=== PATIENT | female | born 1960 | race Caucasian/White ===

== ENCOUNTER 2017-07-03 00:58 | Emergency (ER) | payer BC ==
--- NOTE | 2017-07-03 01:28 | Emergency Department Record ---
History of Present Illness - General Chief Complaint: Alcohol Intoxication Stated Complaint: INTOXICATED Time Seen by Provider: 07/03/17 01:19 Source: Patient, Family Mode of Arrival: EMS Limitations: No limitations - History of Present Illness Initial Comments: The patient is here due to feeling very ill at home which started about 2 hours ago. She was at [employer] most of the evening and had at least 9-10 drinks and then went home at 11:30. When she got home she began to feel very ill and vomited for about an hour. Additionally she felt very weak and dizzy. She denied any CP, SOB, TAYLOR, AP, or any arm or leg numbness or weakness. Due to the persistent vomiting family called 911. EMS found the patient very intoxicated and nauseated. She did receive a dose of Zofran on the way to the hospital and now is feeling much better. Presently she denies any dizziness, weakness, pain, TAYLOR or SOB. MD Complaint: Alcohol intoxication Last Drink: Just [employer] Time Since Last Drink: 90 -: Minute(s) Chronic Alcohol Use: Yes Previous Visits for Alcohol Intoxication?: No Recent Trauma: No Associated Symptoms: Nausea, Vomiting Treatments Prior to Arrival: None - [place] Coma Scale Eye Response: (4) Open spontaneously Motor Response: (6) Obeys commands Verbal Response: (5) Oriented [place] Total: 15 - Related Data Home Medications Medication Instructions Recorded Confirmed Last Taken Atorvastatin Calcium 10 mg PO DAILY 07/03/17 07/03/17 Unknown Doxycycline Hyclate [Doxycycline] 40 mg PO DAILY 07/03/17 07/03/17 Unknown L.acidoph,Paracasei, B.lactis 1 each PO DAILY 07/03/17 07/03/17 Unknown [Probiotic] Latanoprost 0.005% Opth Leelee 2 drop AFFEYE DAILY 07/03/17 07/03/17 Unknown [Xalatan] Allergies Allergy/AdvReac Type Severity Reaction Status Date / Time codeine Allergy Intermediate stomach Verified 07/03/17 01:00 issues morphine Allergy Intermediate stomach Verified 07/03/17 01:00 issues/headache Travel Screening - Travel/Exposure Within Last 30 Days Have you traveled within the last 30 days?: No - Travel/Exposure Within Last Year Have you traveled outside the [place] in the last year?: No - Additonal Travel Details Have you been exposed to anyone with a communicable illness?: No - Travel Symptoms Symptom Screening: None Review of Systems Constitutional: Denies: Chills, Fever Eyes: Denies: Eye discharge ENT: Denies: Congestion Respiratory: Denies: Cough, Dyspnea Past Medical History - SOCIAL HISTORY Smoking Status: Current every day smoker Alcohol Use: Heavy Drug Use: None - RESPIRATORY Hx Respiratory Disorders: Yes Hx Bronchitis: Yes (every 3 yrs) Hx Sleep Apnea: Yes Hx of CPAP: Yes - CARDIOVASCULAR Hx Cardio Disorders: Yes Hx Hypertension: Yes - NEURO Hx Neuro Disorders: No - GI Hx GI Disorders: Yes Hx Abdominal Pain: Yes Hx Reflux: Yes - Hx Genitourinary Disorders: No - ENDOCRINE Hx Endocrine Disorders: Yes Hx Diabetes: Yes Comment:: [facility] run 115-137 - MUSCULOSKELETAL Hx Musculoskeletal Disorders: Yes - PSYCH Hx Psych Problems: Yes Hx Anxiety: Yes Hx Depression: Yes - HEMATOLOGY/ONCOLOGY Hx Hematology/Oncology Disorders: No Family Medical History Any Significant Family History?: No Physical Exam - General General Appearance: Alert, Oriented x3, Cooperative, No acute distress (The patient is obviously intoxicated with mildly slurred speech but is answering all questions appropriately.) - Head Head exam: Atraumatic, Normocephalic, Normal inspection - Eye Eye exam: Normal appearance, PERRL, EOMI - ENT Throat exam: Normal inspection. negative: Tonsillar erythema, Tonsillar exudate - Neck Neck exam: Normal inspection, Full ROM. negative: Tenderness - Respiratory Respiratory exam: Normal lung sounds bilaterally. negative: Respiratory distress - Cardiovascular Cardiovascular Exam: Regular rate, Normal rhythm, Normal heart sounds - GI/Abdominal GI/Abdominal exam: Soft, Normal bowel sounds. negative: Tenderness - Extremities Extremities exam: Normal inspection, Full ROM, Normal capillary refill. negative: Tenderness - Neurological Neurological exam: Alert, Oriented X3, Other (The patient's arms and legs have normal motor and sensory function. ). negative: Altered, Motor sensory deficit - Psychiatric Psychiatric exam: negative: Agitated, Anxious, Depressed Course - Reevaluation(s) Reevaluation #1: The patient is doing OK. She is answering questions appropriately with no focal deficits. Further hx was obtained and the patient did fall at the bar and may have bumped her head. 07/03/17 01:50 Reevaluation #2: The patient is doing very well at this time. She is feeling much better and her speech is clearing well. She denies any numbness, tingling, or weakness. She is resting comfortably talking with her family. 07/03/17 03:22 Reevaluation #3: The patient is doing very well at this time. She denies any Cp, SOB, HILDA, AP or visual changes. Her speech is clear and balance normal. The patient has been up walking with no difficulty and has been eating crackers and drinking water with no nausea or vomiting. On exam her gait is steady and she has no ataxia. Her Drift and Rhomberg exams are neg. I believe along with family that the patient had to much to drink last night and she was instructed to cut back on her alcohol intake. 07/03/17 06:04 07/03/17 06:11 Medical Decision Making - Data Complexity MDM Data: Labs Ordered and/or Reviewed, X-Ray Ordered and/or Reviewed, EKG Ordered and/or Reviewed - Lab Data Result diagrams: 07/03/17 01:20 07/03/17 01:20 - EKG Data -: EKG Interpreted by Me EKG: No Acute Changes, Normal EKG - Radiology Data Radiology results: Report reviewed (Head CT: Neg.) Disposition Disposition: Discharge Clinical Impression: Alcohol intoxication Qualifiers: Complication of substance-induced condition: uncomplicated Qualified Code(s): F10.920 - Alcohol use, unspecified with intoxication, uncomplicated Disposition: Home, Self-Care Condition: (2) Stable Instructions: Alcohol Intoxication (ED) Additional Instructions: Please rest when possible and cut back on your alcohol intake. Please see your PCP for recheck next week if needed. Return to the ER for any problems, vomiting , headache, confusion, or balance issues. Forms: Patient Portal Access Time of Disposition: 06:03 Quality - Quality Measures Quality Measures: N/A - Blood Pressure Screening View Details: Yes Does Patient Have Any of the Following: No Blood Pressure Classification: Normal BP Reading Systolic Measurement: 119 Diastolic Measurement: 64 Screening for High Blood Pressure: < Normal BP, F/U Not Required > [G8783]
[2017-07-03 01:30] LABS: BASO % 0.1 % (0-6); EOS % 0.1 % (0-6); GRAN % 72.3 % (47-80); HEMATOCRIT 38.5 % (35.0-47.0); HEMOGLOBIN 13.5 gm/dl (11.6-16.0); LYMPH % 21.7 % (16-45); MEAN CELL VOLUME 92.8 fl (81-97); MEAN CORPUSCULAR HEMOGLOBIN 32.5 pg (27-33); MEAN CORPUSCULAR HGB CONC 35.1 g/dl (32-36); MEAN PLATELET VOLUME 10.8 fl (7.4-10.4); MONO % 5.8 % (0-9); PLATELET COUNT 199 K/uL (130-400); RED BLOOD COUNT 4.15 M/uL (3.80-5.40); RED CELL DISTRIBUTION WIDTH 13.5 % (11.5-14.5); WHITE BLOOD COUNT W/O DIFF 8.5 K/uL (4.2-12.2)
[2017-07-03] MEDS ORDERED: 0.9 % SODIUM CHLORIDE 1,000 ML BAG IV ONE ×2 (01:32→02:18)
[2017-07-03] MEDS ORDERED: ONDANSETRON HCL IV 4 MG/2 ML VIAL IVP ONE (01:34)
[2017-07-03 02:13] LABS: ALBUMIN 4.6 g/dL (4.0-5.0); ALKALINE PHOSPHATASE 59 U/L (35-104); ALT/SGPT 35 U/L (<33); AST/SGOT 34 U/L (10.0-35.0); BLOOD UREA NITROGEN 15 mg/dL (6-20); CREATINE PHOSPHOKINASE 336 U/L (26-192)
[2017-07-03 02:14] LABS: ALB/GLOB RATIO 1.6 (1.1-1.8); CREATININE 0.6 mg/dL (0.5-0.9); EST GLOMERULAR FILTRATION RATE > 60 mL/min; GLUCOSE,RANDOM 138 mg/dL (74-109); TOTAL PROTEIN 7.4 g/dL (6.6-8.7)
[2017-07-03 02:15] LABS: CKMB 5.3 ng/mL (<3.77)
[2017-07-03] MEDS ORDERED: ACETAMINOPHEN 325 MG TAB PO ONE (02:42)
[2017-07-03 03:45] LABS: URINE APPEARANCE CLEAR; URINE BILIRUBIN NEGATIVE (NEGATIVE); URINE BLOOD TRACE-I (NEGATIVE); URINE COLOR YELLOW; URINE GLUCOSE (UA) NEGATIVE (NEGATIVE); URINE KETONE NEGATIVE (NEGATIVE); URINE LEUKOCYTE ESTERASE NEGATIVE (NEGATIVE); URINE NITRITE NEGATIVE (NEGATIVE); URINE PROTEIN NEGATIVE (NEGATIVE); URINE UROBILINOGEN 0.2 E.U./dL (0.20 - 1.00)
[2017-07-03 03:49] LABS: AMPHETAMINE SCREEN URINE NOT DETECTED; BARBITURATE SCREEN URINE NOT DETECTED; BENZODIAZEPINE SCREEN URINE NOT DETECTED; COCAINE SCREEN URINE NOT DETECTED; METHADONE SCREEN URINE NOT DETECTED; METHAMPHETAMINE SCREEN NOT DETECTED; OPIATE SCREEN URINE NOT DETECTED; OXYCODONE SCREEN URINE NOT DETECTED; PHENCYCLIDINE SCREEN URINE NOT DETECTED; PROPOXYPHENE SCREEN URINE NOT DETECTED; THC SCREEN URINE NOT DETECTED; TRICYCLIC ANTIDEPRESSANT SCRN NOT DETECTED
[2017-07-03 03:55] LABS: URINE RBC 0 - 2 (NONE SEEN); URINE WBC 0 - 2 (0-2/hpf)
--- NOTE | 2017-07-03 11:18 | CT SCAN REPORT ---
DATE: 12/31/2017. EXAM: CT OF THE BRAIN. HISTORY: Dizziness. TECHNIQUE: CT of the brain without contrast. COMPARISON: None. FINDINGS: The globes are intact. Mucosal thickening of the maxillary sinuses and ethmoid air cells. No displaced or depressed skull fracture. No intra- or extra-axial hemorrhage. CT limited for evaluation of acute infarct. No CT evidence for large or territorial acute infarct. No mass or midline shift. Hypodensities in the basal ganglia bilaterally. These are nonspecific. No discrete mass or midline shift. IMPRESSION: SUBTLE HYPODENSITIES WITHIN THE BASAL GANGLIA REGIONS BILATERALLY. THESE COULD RELATE TO SEQUELAE OF MINOR SMALL-VESSEL ISCHEMIC CHANGE VERSUS PERIVENTRICULAR CYSTS. SMALL, AGE-INDETERMINATE LACUNAR INFARCTS ARE NOT EXCLUDED. IF SYMPTOMS PERSIST CONSIDER FOLLOWUP WITH MRI. [facility]BER: [id number] [facility]
== END 2017-07-03 06:25 | disposition home or self-care (01) ==
LOC: ER 00:58
DX: F10.920 Alcohol use, unspecified with intoxication, uncomplicated (principal); R42 Dizziness and giddiness; R11.2 Nausea with vomiting, unspecified; E11.9 Type 2 diabetes mellitus without complications; I10 Essential (primary) hypertension; F17.210 Nicotine dependence, cigarettes, uncomplicated; Z79.899 Other long term (current) drug therapy; Y90.6 Blood alcohol level of 120-199 mg/100 ml
CPT/HCPCS: 99284 ×2; 96374; 96361; 82550; 85025; 82553; 80053; 81001; 80305; 84484; 70450; 93005; 93010; G0480; J2405; 80320; J7030

== ENCOUNTER 2017-11-14 02:38 | Emergency (ER) | payer BC ==
[2017-11-14] MEDS: AL HYDROX/MAG HYDROX 30ML UD PO ONE (03:06)
--- NOTE | 2017-11-14 03:06 | Emergency Department Record ---
History of Present Illness - General Chief complaint: Pain Stated complaint: L ARM PAIN Time Seen by Provider: 11/14/17 02:58 Source: Patient Mode of Arrival: Ambulatory - History of Present Illness Initial comments: The patient states that yesterday, 11-13-17 around 3 p.m. while at rest she developed tightness in her elbow and entire arm up to the left side of her neck , even into her shoulder. She overall hasn't been feeling well the past few days. Wednesday11-10-17 she felt heartburn and indigestion most of the day. She went to bed last evening and was awakened at 0200 with left arm tightness. She also had nausea and was diaphoretic at home. She denies SOB, unilateral muscle weakness, slurred speech, briones, mental status changes. Her daughter who is a nurse states she took her blood pressure which was 158/94, a higher than normal reading for her. Risks: DM on pills only; +smoker; FH(mom has a) cardiac stent; +htn; -chol elevation; -CAD that she knows of. She sees Dr. Stewart, [facility] and had a stress test in 2016 she thinks. She denies hx of CVA, PE, DVT. Onset/Timin -: Minutes(s) Severity scale (1-10): 7 Consistency: Intermittent Improves with: Nothing Worsens with: Nothing Associated Symptoms: Denies other symptoms - Related Data Home Medications Medication Instructions Recorded Confirmed Last Taken Azelaic Acid [Finacea] 50 gm TP ASDIR 11/14/17 11/14/17 Unknown Cholecalciferol (Vitamin D3) 4,000 unit PO DAILY 11/14/17 11/14/17 Unknown [Vitamin D3] Cyanocobalamin (Vitamin B-12) 1,000 mcg PO DAILY 11/14/17 11/14/17 Unknown [Vitamin B12] Allergies Allergy/AdvReac Type Severity Reaction Status Date / Time codeine Allergy Intermediate stomach Verified 07/03/17 01:00 issues morphine Allergy Intermediate stomach Verified 07/03/17 01:00 issues/headache cefprozil [From Cefzil] Allergy stomach Verified 11/14/17 02:57 issues Travel Screening - Travel/Exposure Within Last 30 Days Have you traveled within the last 30 days?: No Review of Systems Reviewed: No additional complaints except as noted below Constitutional: Reports: As per HPI. Denies: Chills, Fever, Malaise, Night sweats, Weakness, Weight change Eyes: Reports: As per HPI. Denies: Eye discharge, Eye pain, Photophobia, Vision change ENT: Reports: As per HPI. Denies: Congestion, Dental pain, Ear pain, Epistaxis , Hearing loss, Throat pain Respiratory: Reports: As per HPI. Denies: Cough, Dyspnea, Hemoptysis, Stridor, Wheezes Cardiovascular: Reports: As per HPI. Denies: Arrhythmia, Chest pain, Dyspnea on exertion, Edema, Murmurs, Orthopnea, Palpitations, Paroxysmal nocturnal dyspnea, Rheumatic Fever, Syncope Endocrine: Reports: As per HPI. Denies: Fatigue, Heat or cold intolerance, Polydipsia, Polyuria Gastrointestinal: Reports: As per HPI. Denies: Abdominal pain, Constipation, Diarrhea, Hematemesis, Hematochezia, Melena, Nausea, Vomiting Genitourinary: Reports: As per HPI. Denies: Abnormal menses, Discharge, Dyspareunia, Dysuria, Frequency, Hematuria, Incontinence, Retention, Urgency Musculoskeletal: Reports: As per HPI. Denies: Arthralgia, Back pain, Gout, Joint swelling, Myalgia, Neck pain Skin: Reports: As per HPI. Denies: Bruising, Change in color, Change in hair/ nails, Lesions, Pruritus, Rash Neurological: Reports: As per HPI. Denies: Abnormal gait, Confusion, Headache, Numbness, Paresthesias, Seizure, Tingling, Tremors, Vertigo, Weakness Psychiatric: Reports: As per HPI. Denies: Anxiety, Auditory hallucinations, Depression, Homicidal thoughts, Suicidal thoughts, Visual hallucinations Hematological/Lymphatic: Reports: As per HPI. Denies: Anemia, Blood Clots, Easy bleeding, Easy bruising, Swollen glands Past Medical History - SOCIAL HISTORY Smoking Status: Current every day smoker Alcohol Use: None Drug Use: None - RESPIRATORY Hx Respiratory Disorders: Yes Hx Bronchitis: Yes (every 3 yrs) Hx Sleep Apnea: Yes Hx of CPAP: Yes - CARDIOVASCULAR Hx Cardio Disorders: Yes Hx Hypertension: Yes - NEURO Hx Neuro Disorders: No - GI Hx GI Disorders: Yes Hx Abdominal Pain: Yes Hx Reflux: Yes - Hx Genitourinary Disorders: No - ENDOCRINE Hx Endocrine Disorders: Yes Hx Diabetes: Yes Comment:: b.s garry 115-137 - MUSCULOSKELETAL Hx Musculoskeletal Disorders: Yes - PSYCH Hx Psych Problems: Yes Hx Anxiety: Yes Hx Depression: Yes - HEMATOLOGY/ONCOLOGY Hx Hematology/Oncology Disorders: No Family Medical History Any Significant Family History?: No Physical Exam - General General Appearance: Alert, Oriented x3, Cooperative, Mild distress, Other (obese , fatigued) - Head Head exam: Normal inspection - Eye Eye exam: Normal appearance, PERRL, EOMI. negative: Conjunctival injection, Nystagmus Pupils: Normal accommodation - ENT ENT exam: Normal exam, Mucous membranes moist, Normal external ear exam, Normal orophraynx, TM's normal bilaterally Ear exam: Normal external inspection. negative: External canal tenderness Nasal Exam: Normal inspection. negative: Discharge, Sinus tenderness Mouth exam: Normal external inspection, Tongue normal Teeth exam: Normal inspection. negative: Dental caries Throat exam: Normal inspection. negative: Tonsillar erythema, Tonsillar exudate - Neck Neck exam: Normal inspection, Full ROM. negative: Lymphadenopathy, Meningismus , Tenderness - Respiratory Respiratory exam: Normal lung sounds bilaterally. negative: Respiratory distress - Cardiovascular Cardiovascular Exam: Regular rate, Normal rhythm, Normal heart sounds - GI/Abdominal GI/Abdominal exam: Soft, Normal bowel sounds, Other (obese). negative: Distended, Tenderness - Rectal Rectal exam: Deferred - exam: Deferred - Extremities Extremities exam: Normal inspection, Full ROM, Normal capillary refill. negative: Calf tenderness, Pedal edema, Tenderness - Back Back exam: Reports: Normal inspection, Full ROM. Denies: CVA tenderness (R), CVA tenderness (L), Muscle spasm, Rash noted, Tenderness - Neurological Neurological exam: Alert, CN II-XII intact, Normal gait, Oriented X3, Reflexes normal (2 plus all 4 extremities.). negative: Motor sensory deficit - Psychiatric Psychiatric exam: Flat affect, Normal affect, Normal mood - Skin Skin exam: Dry, Intact, Normal color, Warm Course Vital Signs 11/14/17 11/14/17 11/14/17 02:42 02:48 02:53 Temperature 97.8 F Pulse Rate 89 Pulse Rate [ 94 H Pulse Ox Probe] Respiratory 20 18 Rate Blood Pressure 118/95 Blood Pressure 118/95 [Right Arm] Pulse Ox 97 97 - Reevaluation(s) Reevaluation #1: 11/14/17 03:27 Patient states that her nausea has resolved with the zofran. Her arm is still bothering her. Reevaluation #2: Patient prefers to NOT be admitted to the hospital. She agrees to a repeat troponin and out patient cardiac workup with her [facility] Dr. Stewart in his office this week IF her repeat troponin is not rising. Will redraw her troponin at 4 hours. Plant to turn care over to Dr. Chamberlain at 7 a.m. shift change and to DC home if troponin not rising. 11/14/17 05:34 11/14/17 05:37 Reevaluation #3: Patient statesthat her arm discomfort has decreased. Thre is still a tiny bit of subjective tingling in the fingertips of her left hand. 11/14/17 06:10 Reevaluation #4: Repeat troponin is unchanged. Patient is to follow with her Pastry Chef in his office this week for out patient cardiac workup. 11/14/17 06:54 Medical Decision Making - Management Options MDM Management: Additional Work-up Planned (e.g. 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 Stewart this week) - Data Complexity MDM Data: Labs Ordered and/or Reviewed (TSH elevation of 9.62.), X-Ray Ordered and/or Reviewed (Noncontrast Cervical Spine CT: No acute findings, no spinal canal stenosis.Per [facility]. CXR Neg per ED physician.), EKG Ordered and/or Reviewed (EKG: NSR 91/min; Nl axis, nl QRS nl ST and T's No acute abnormality. No prior.) - Lab Data Result diagrams: 11/14/17 02:50 11/14/17 02:50 Disposition Disposition: Discharge Clinical Impression: Pain in left arm, Elevated TSH Disposition: Home, Self-Care Condition: (2) Stable Additional Instructions: Call Dr. Stewart office for out patient cardiac workup through his office this week if repeat troponin is shown to be not rising. 'Follow up with PCP to manage low thyroid levels, and to adjust thyroid medication as indicated. Forms: Patient Portal Access Quality - Quality Measures Quality Measures: N/A - Blood Pressure Screening Does Patient Have Any of the Following: No Blood Pressure Classification: Hypertensive Reading Systolic Measurement: 118 Diastolic Measurement: 95 Screening for High Blood Pressure: < Normal BP, F/U Not Required > [G8783]
[2017-11-14] MEDS: ONDANSETRON HCL IV 4 MG/2 ML VIAL IVP ONE (03:08)
[2017-11-14] MEDS: ASPIRIN 325 MG TABLET PO ONE (03:08)
[2017-11-14 03:14] LABS: HEMATOCRIT 42.1 % (35.0-47.0); HEMOGLOBIN 14.1 gm/dl (11.6-16.0); MEAN CELL VOLUME 96.6 fl (81-97); MEAN CORPUSCULAR HEMOGLOBIN 32.3 pg (27-33); MEAN CORPUSCULAR HGB CONC 33.5 g/dl (32-36); MEAN PLATELET VOLUME 10.6 fl (7.4-10.4); PLATELET COUNT 225 K/uL (130-400); RED BLOOD COUNT 4.36 M/uL (3.80-5.40); RED CELL DISTRIBUTION WIDTH 13.6 % (11.5-14.5)
[2017-11-14 03:24] LABS: PLATELET ESTIMATE NORMAL (NORMAL)
[2017-11-14 03:28] LABS: BLOOD UREA NITROGEN 14 mg/dL (6-20); CREATININE 0.7 mg/dL (0.5-0.9); EST GLOMERULAR FILTRATION RATE > 60 mL/min; INR 0.9; PROTHROMBIN TIME (PATIENT) 9.7 SECONDS (9.5-12.1)
[2017-11-14 03:29] LABS: TOTAL PROTEIN 7.3 g/dL (6.6-8.7)
[2017-11-14 03:31] LABS: GLUCOSE,RANDOM 86 mg/dL (74-109)
[2017-11-14] MEDS: KETOROLAC 30 MG/ML VIAL IVP ONE (03:32)
[2017-11-14 03:33] LABS: ALB/GLOB RATIO 1.7 (1.1-1.8); ALBUMIN 4.6 g/dL (4.0-5.0); ALKALINE PHOSPHATASE 91 U/L (35-104); ALT/SGPT 23 U/L (<33); AST/SGOT 25 U/L (10.0-35.0)
[2017-11-14 03:35] LABS: NTpro B-NATRIURETIC PEPTIDE 18.83 pg/mL (<125)
[2017-11-14 03:45] LABS: THYROID STIMULATING HORMONE 9.62 uIU/mL (0.270-4.20)
--- NOTE | 2017-11-15 18:59 | RADIOLOGY REPORT ---
EXAM: CHEST 2 VIEWS HISTORY: LEFT SHOULDER AND LEFT ARM PAIN. SLIGHT COUGH. TECHNIQUE: PA and lateral upright views of the chest were obtained. COMPARISON: None. FINDINGS: The heart, mediastinum, and pulmonary vasculature are normal. Tiny nodular densities within the upper lobes have the appearance of calcified granulomata. There are no acute infiltrates or effusions. There is no pneumothorax. Degenerative changes are present within the spine. IMPRESSION: NO ACUTE CHEST PATHOLOGY. [facility]BER: [id number] [facility]
--- NOTE | 2017-11-15 19:06 | CT SCAN REPORT ---
EXAM: CT SCAN CERVICAL SPINE WO CONTRAST HISTORY: LEFT UPPER EXTREMITY RADICULOPATHY. PAIN IN THE LEFT SHOULDER AND ARM WITH RADIATION TO THE FINGERS. TECHNIQUE: Standard CT imaging of the cervical spine was performed in the axial plane without contrast. Additional coronal and sagittal reformatted images were also performed. COMPARISON: None. ENCOUNTER: Not applicable. FINDINGS: There is normal cervical alignment. The craniocervical and cervicothoracic junctions are normal. There is moderate disc space narrowing of the C5/6 and mild disc space narrowing of the C6/7 levels. Endplate degenerative changes and facet arthropathy are present throughout. Degenerative changes are present at the atlantodental articulation. There is no acute fracture, subluxation, or prevertebral soft tissue swelling. There is mild central canal stenosis at the C5/6 and C6/7 levels. Mild to moderate neural foraminal narrowing is present at multiple levels. The neck soft tissues appear normal. A small calcified granuloma is present within the right apex. IMPRESSION: 1. MULTILEVEL DEGENERATIVE DISC DISEASE AND FACET ARTHROPATHY WITH MILD CENTRAL CANAL STENOSIS AT THE C5/6 AND C6/7 LEVELS. 2. MILD TO MODERATE NEURAL FORAMINAL NARROWING ON MULTIPLE LEVELS. 3. NO ACUTE CERVICAL SPINE PATHOLOGY. J[facility] NUMBER: [id number] [facility]
== END 2017-11-14 07:09 | disposition home or self-care (01) ==
LOC: ER 02:38
DX: M79.602 Pain in left arm (principal); R11.0 Nausea; I10 Essential (primary) hypertension; E11.9 Type 2 diabetes mellitus without complications; Z79.84 Long term (current) use of oral hypoglycemic drugs; R94.6 Abnormal results of thyroid function studies
CPT/HCPCS: 71046; 72125; 80053; 83880; 84439; 84443; 84484; 85027; 85379; 85610; 85730; 93005; 93010; 93041; 96374; 96375; 99284; J1885; J2405

== ENCOUNTER 2018-09-17 01:09 | Emergency (ER) | payer BC ==
--- NOTE | 2018-09-17 01:46 | Emergency Department Record ---
History of Present Illness - General Chief Complaint: Alcohol Intoxication Stated Complaint: ETOH Time Seen by Provider: 09/17/18 01:32 Source: Patient, Family Mode of Arrival: EMS Limitations: No limitations - History of Present Illness Initial Comments: The patient is here due to being found drunk by her family. She denies any injury or pain but was vomiting earlier. She states she was drinking heavily which she has a hx of in the past. There is no history of any recent illnesses or injuries. MD Complaint: Alcohol intoxication Last Drink: Unknown Chronic Alcohol Use: Yes Previous Visits for Alcohol Intoxication?: Yes Recent Trauma: No Associated Symptoms: Vomiting - [place] Coma Scale Eye Response: (3) Open to voice Motor Response: (6) Obeys commands Verbal Response: (5) Oriented [place] Total: 14 - Related Data Allergies Allergy/AdvReac Type Severity Reaction Status Date / Time codeine Allergy Intermediate stomach Unverified 12/03/17 12:44 issues morphine Allergy Intermediate stomach Unverified 12/03/17 12:44 issues/headache cefprozil [From Cefzil] Allergy stomach Unverified 12/03/17 12:44 issues Travel Screening - Travel/Exposure Within Last 30 Days Have you traveled within the last 30 days?: No - Travel Symptoms Symptom Screening: None Review of Systems Constitutional: Denies: Chills, Fever Eyes: Denies: Eye discharge ENT: Denies: Congestion Respiratory: Denies: Cough, Dyspnea Past Medical History - SOCIAL HISTORY Smoking Status: Current every day smoker Alcohol Use: Heavy Drug Use: None - RESPIRATORY Hx Respiratory Disorders: Yes Hx Bronchitis: Yes (every 3 yrs) Hx Sleep Apnea: Yes Hx of CPAP: Yes - CARDIOVASCULAR Hx Cardio Disorders: Yes Hx Hypertension: Yes - NEURO Hx Neuro Disorders: No - GI Hx GI Disorders: Yes Hx Abdominal Pain: Yes Hx Reflux: Yes - Hx Genitourinary Disorders: No - ENDOCRINE Hx Endocrine Disorders: Yes Hx Diabetes: Yes Comment:: b.[facility] run 115-137 - MUSCULOSKELETAL Hx Musculoskeletal Disorders: Yes - PSYCH Hx Psych Problems: Yes Hx Anxiety: Yes Hx Depression: Yes - HEMATOLOGY/ONCOLOGY Hx Hematology/Oncology Disorders: No Family Medical History Any Significant Family History?: No Physical Exam - General General Appearance: Alert, Cooperative, No acute distress - Head Head exam: Atraumatic, Normocephalic, Normal inspection - Eye Eye exam: Normal appearance, PERRL - ENT Throat exam: Normal inspection. negative: Tonsillar erythema, Tonsillar exudate - Neck Neck exam: Normal inspection, Full ROM. negative: Tenderness - Respiratory Respiratory exam: Normal lung sounds bilaterally. negative: Respiratory distress - Cardiovascular Cardiovascular Exam: Regular rate, Normal rhythm, Normal heart sounds - GI/Abdominal GI/Abdominal exam: Soft, Normal bowel sounds. negative: Rebound, Rigid, Tenderness - Extremities Extremities exam: Normal inspection, Full ROM, Normal capillary refill. negative: Tenderness - Neurological Neurological exam: Alert. negative: Motor sensory deficit Course Vital Signs 09/17/18 01:42 Temperature 97.9 F Pulse Rate [ 88 Pulse Ox Probe] Respiratory 18 Rate Blood Pressure 129/69 [Left Arm] Pulse Ox 98 - Reevaluation(s) Reevaluation #1: The patient is doing well at this time and is sleeping with no complaints. 09/17/18 03:15 Reevaluation #2: The patient is doing very well at this time. She is speaking clearly with no slurred speech and would like to go home. 09/17/18 03:43 Reevaluation #3: The patient is up walking and talking normally with no ataxia or slurred speech. She would like to go home and appears very stable for discharge. 09/17/18 03:58 Medical Decision Making - Lab Data Result diagrams: 09/17/18 01:50 09/17/18 01:50 Disposition Disposition: Discharge Clinical Impression: Alcohol intoxication Qualifiers: Complication of substance-induced condition: uncomplicated Qualified Code(s): F10.920 - Alcohol use, unspecified with intoxication, uncomplicated Disposition: Home, Self-Care Condition: (2) Stable Instructions: Alcohol Intoxication (ED) Additional Instructions: Please do not drink alcohol in excess and see your family doctor for any further issues. Return to the ER for any worsening symptoms or new issues. Forms: Patient Portal Access Time of Disposition: 03:47 Quality - Quality Measures Quality Measures: N/A - Blood Pressure Screening View Details: Yes Does Patient Have Any of the Following: No Blood Pressure Classification: Pre-Hypertensive BP Reading Systolic Measurement: 129 Diastolic Measurement: 69 Screening for High Blood Pressure: < Pre-Hypertensive BP, F/U Documented > [ G8950] Pre-Hypertensive Follow-up Interventions: Referral to alternative/primary care provider.
[2018-09-17 01:57] LABS: HEMATOCRIT 42.3 % (35.0-47.0); HEMOGLOBIN 13.9 gm/dl (11.6-16.0); MEAN CELL VOLUME 96.8 fl (81-97); MEAN CORPUSCULAR HEMOGLOBIN 31.8 pg (27-33); MEAN CORPUSCULAR HGB CONC 32.9 g/dl (32-36); MEAN PLATELET VOLUME 9.9 fl (7.4-10.4); PLATELET COUNT 217 K/uL (130-400); RED BLOOD COUNT 4.37 M/uL (3.80-5.40); RED CELL DISTRIBUTION WIDTH 13.2 % (11.5-14.5); WHITE BLOOD COUNT W/O DIFF 10.9 K/uL (4.2-12.2)
[2018-09-17 02:10] LABS: BLOOD UREA NITROGEN 15 mg/dL (8-23); CREATININE 0.7 mg/dL (0.5-0.9); EST GLOMERULAR FILTRATION RATE > 60 mL/min
[2018-09-17 02:11] LABS: TOTAL PROTEIN 7.6 g/dL (6.6-8.7)
[2018-09-17 02:13] LABS: ALCOHOL 0.145 g/dL (0-0.010); GLUCOSE,RANDOM 152 mg/dL (74-109)
[2018-09-17 02:15] LABS: ALB/GLOB RATIO 1.8 (1.1-1.8); ALBUMIN 4.9 g/dL (4.0-5.0); ALKALINE PHOSPHATASE 68 U/L (35-104); ALT/SGPT 38 U/L (<33); AST/SGOT 33 U/L (10.0-35.0)
== END 2018-09-17 04:15 | disposition home or self-care (01) ==
LOC: ER 01:09
DX: F10.920 Alcohol use, unspecified with intoxication, uncomplicated (principal); Y90.6 Blood alcohol level of 120-199 mg/100 ml; R11.10 Vomiting, unspecified; I10 Essential (primary) hypertension; E11.9 Type 2 diabetes mellitus without complications; F17.210 Nicotine dependence, cigarettes, uncomplicated; Z79.84 Long term (current) use of oral hypoglycemic drugs
CPT/HCPCS: 99283 ×2; 80053; 85027; G0480; 80320